=== PATIENT | male | born 1975 | race Caucasian/White ===

== ENCOUNTER 2022-01-10 07:59 | Emergency (ER) | payer BC ==
[2022-01-10] MEDS ORDERED: IBU800 MG PO (12:09)
[2022-01-10] MEDS ORDERED: CYCLOBENZAPRINE10 MG PO (12:09)
[2022-01-10] MEDS ORDERED: ENDOCET 5-3251 EACH PO (12:09)
== END 2022-01-10 12:33 | disposition home or self-care (01) ==
LOC: ER1 07:59
DX: M54.16 Radiculopathy, lumbar region (principal)
CPT/HCPCS: 72131; 99283